=== PATIENT | male | born 1995 | race Hispanic/Latino ===

== ENCOUNTER 2022-05-08 13:19 | Emergency (ER) | payer OTHER, SELFPAY ==
[2022-05-08] VITALS (10 sets, daily range): BP systolic 136–175; BP diastolic 88–113; PULSE 62–93; RESP 15–23; TEMP 36.7; O2SAT 98–100
[2022-05-08 13:50] LABS: Add Manual Diff / Slide Review NO; Basophils Absolute Auto 100 /uL (0-100); Basophils Percent Auto 0.4 % (0-2); Eosinophils Absolute Auto 0 /uL (0-450); Hematocrit 43.5 % (41-53); Hemoglobin 14.5 g/dL (13.5-17.5); Lymphocytes Absolute Auto 1500 /uL (1100-4500); Lymphocytes Percent Auto 12.8 % (25-40); Mean Corpuscular HGB Conc 33.4 % (30-36); Mean Corpuscular Hemoglobin 26.2 PG (26-34); Mean Corpuscular Volume 78.6 fL (80-100); Monocytes Absolute Auto 1300 /uL (0-900); Neutrophils Absolute Auto 9000 /uL (1500-7000); Neutrophils Percent Auto 75.8 % (50-75); Platelet Count 442 X10^3/uL (150-400); Red Blood Cell Count 5.54 X10^6/uL (4.5-5.9); Red Cell Distribution Width 14.3 % (11.6-14.8); White Blood Cell Count 11.9 X10^3/uL (4.5-11.0)
[2022-05-08 14:02] LABS: Alanine Aminotransferase 32 IU/L (<50); Albumin 5.2 g/dL (3.5-5.0); Albumin Globulin Ratio 1.3 (1.0-2.8); Alkaline Phosphatase 54 U/L (38-126); Aspartate Aminotransferase 32 IU/L (17-59); BUN Creatinine Ratio 8.1 (6-22); Bilirubin Total 1.6 mg/dL (0.2-1.3); Blood Urea Nitrogen 10 mg/dL (9-20); Calcium 10.1 mg/dL (8.4-10.2); Carbon Dioxide 24 mmol/L (22-32); Chloride 97 mmol/L (98-107); Estimated Glomerular Filt Rate > 60 mL/min (>60); Glucose 97 mg/dL (70-100); HEMOLYSIS < 15 (0-50); Lipase 44 U/L (23-300); Potassium 3.5 mmol/L (3.4-5.1); Sodium 139 mmol/L (137-145); Total Protein 9.2 g/dL (6.3-8.2)
[2022-05-08] MEDS: diphenhydrAMINE 50 MG/ML VIAL IV (15:57)
[2022-05-08] MEDS: HALOPERIDOL 5 MG/ML VIAL IV (15:58)
--- NOTE | 2022-05-08 16:06 | PC.NURSE ---
1530: Pt reporting sharp chest pain in left chest that came on suddenly. /10 for pain. Repeat EKG done. Provider made aware. 1555: Pt reports chest pain is going away. /10 for pain.
--- NOTE | 2022-05-08 16:51 | ED.NAVMDI ---
HPI - Nausea/Vomiting/Diarrhea <Christina Vance PA-C - Last Filed: 05/08/22 17:36> General Chief complaint: Nausea/Vomiting/Diarrhea Stated complaint: NVD X 6 days Time Seen by Provider: 05/08/22 14:25 Source: patient Mode of arrival: Ambulatory History of Present Illness HPI Narrative: 26-year-old male with past medical history anxiety, depression, Crohn's presents to the ED with 5 days of intractable vomiting. Patient states he is unable to keep any solids or liquids down. Patient endorses marijuana use. Patient denies fever, chills, chest pain, shortness of breath, diarrhea, lightheadedness, dizziness, syncope. Patient states that his symptoms improve with hot showers. Patient complains of some abdominal pain which he describes as muscular as opposed to internal. Patient denies dysuria, flank pain. Patient denies eating any suspicious foods that might have caused him to vomit. Patient's last bowel movement was 3 or 4 days ago. Patient has a history of Crohn's, has had a partial bowel resection for it. Patient states that he visited the [facility] emergency department last night, had a CT scan without any acute findings, was sent home with a prescription for Zofran. Patient presented to the ED today since his emesis had not stopped. Obtained CT scan results from [facility]. no acute findings. Related Data Allergies Allergy/AdvReac Type Severity Reaction Status Date / Time No Known Drug Allergies Allergy Verified 05/10/22 09:54 Review of Systems <Christina Vance PA-C - Last Filed: 05/08/22 17:36> Review of Systems ROS Unobtainable: All systems reviewed & are unremarkable except as noted in HPI and below Constitutional Constitutional: Denies chills, Denies fatigue, Denies fever(s), Denies frequent falls, Denies lethargy and Denies weakness Eyes Eyes: Denies change in vision, Denies eye discharge, Denies irritation and Denies loss of vision ENT Ears, Nose, Mouth, and Throat: Denies change in voice, Denies dizziness, Denies neck pain, Denies sore throat and Denies throat swelling Cardiovascular Cardiovascular: Denies chest pain, Denies irregular heart rhythm, Denies lightheadedness, Denies palpitations, Denies dyspnea, Denies dyspnea on exertion and Denies orthopnea Respiratory Respiratory: Denies cough, Denies dyspnea, Denies dyspnea on exertion and Denies wheezing Gastrointestinal Gastrointestinal: Denies abdominal pain, Denies change in bowel habits, Denies diarrhea, Reports nausea and Reports vomiting Genitourinary Genitourinary: Denies hematuria, Denies flank pain, Denies urinary incontinence and Denies urinary urgency Musculoskeletal Musculoskeletal: Denies back pain, Denies muscle weakness, Denies neck pain, Denies numbness and Denies tingling Comments: Cramps in bilateral hands Integumentary/Breasts Skin/Breast: Denies pruritus, Denies erythema, Denies rash and Denies wounds Neurologic Neurologic: Denies behavioral changes, Denies confusion, Denies dizziness, Denies frequent falls, Denies loss of vision, Denies numbness, Denies tingling and Denies weakness Psychiatric Psychiatric: Denies anxiety, Denies behavioral changes, Denies confusion, Denies depression, Denies homicidal ideation and Denies suicidal ideation Endocrine Endocrine: Denies fatigue, Denies flushing and Denies palpitations Hematologic/Lymphatic Hematologic/Lymphatic: Denies easy bruising Allergic/Immunologic Allergic/Immunologic: Denies urticaria, Denies throat swelling and Denies wheezing Patient History <Christina Vance PA-C - Last Filed: 05/08/22 17:36> Social History Smoking Status: Current every day smoker Smoking Status: Current every day smoker alcohol intake frequency: 0-2 drinks per day Exam <Christina Vance PA-C - Last Filed: 05/08/22 17:36> Narrative Exam Narrative: Const General:?cooperative, healthy appearing and comfortable [facility] Head:?normal to inspection Ears:?hearing grossly normal bilaterally Nose:?external nose normal Face and sinus:?normal facial exam and sinuses nontender Mouth:?oral mucosae normal Throat:?posterior oropharynx normal Eyes General:?appearance normal, both eyes and all related structures Neck Neck:?normal visual inspection and no lymphadenopathy noted Resp Effort & Inspection:?normal respiratory effort Auscultation:?clear to auscultation bilaterally Cardio Rate:?regular rate Rhythm:?regular rhythm GI Abdomen is soft, nondistended, nontender to palpation. No CVA tenderness. Neuro General:?patient alert, patient awake and patient oriented x3 Initial Vital Signs Initial Vital Signs: Vital Signs Temperature 98.0 F 05/08/22 13:27 Pulse Rate 93 H 05/08/22 13:27 Respiratory Rate 22 05/08/22 13:27 Blood Pressure 136/99 H 05/08/22 13:27 Pulse Oximetry 100 05/08/22 13:27 Oxygen Delivery Method 05/08/22 13:27 <Michael Crowder DO - Last Filed: 05/11/22 07:13> Initial Vital Signs Initial Vital Signs: Vital Signs Temperature 98.0 F 05/08/22 13:27 Pulse Rate 93 H 05/08/22 13:27 Respiratory Rate 22 05/08/22 13:27 Blood Pressure 136/99 H 05/08/22 13:27 Pulse Oximetry 100 05/08/22 13:27 Oxygen Delivery Method 05/08/22 13:27 Course <Christina Vance PA-C - Last Filed: 05/08/22 17:36> Orders Ordered: Discontinued Medications Diphenhydramine HCl (Diphenhydramine 50 Mg/Ml Vial) 50 mg IV NOW ONE Stop: 05/08/22 15:20 Last Admin: 05/08/22 15:57 Dose: 50 mg Documented By: DOUG Haloperidol (Haloperidol 5 Mg/Ml Vial) 5 mg IV NOW ONE Stop: 05/08/22 15:20 Last Admin: 05/08/22 15:58 Dose: 5 mg Documented By: DOUG Ondansetron HCl (Ondansetron 4 Mg/2 Ml Inj) 4 mg IV NOW ONE Stop: 05/08/22 17:21 Last Admin: 05/08/22 17:26 Dose: 4 mg Documented By: LINDY Vital Signs Vital signs: Vital Signs - 8 hr 05/08/22 13:27 05/08/22 15:30 05/08/22 15:31 Temperature 98.0 F Pulse Rate 93 H 88 88 Respiratory Rate 22 18 17 Blood Pressure 136/99 H Pulse Oximetry 100 100 100 Oxygen Delivery Method Room Air 05/08/22 15:31 05/08/22 16:00 05/08/22 16:00 Temperature Pulse Rate 78 Respiratory Rate 15 Blood Pressure 175/108 H 163/98 H Pulse Oximetry 100 Oxygen Delivery Method <Michael Crowder DO - Last Filed: 05/11/22 07:13> Orders Ordered: Discontinued Medications Diphenhydramine HCl (Diphenhydramine 50 Mg/Ml Vial) 50 mg IV NOW ONE Stop: 05/08/22 15:20 Last Admin: 05/08/22 15:57 Dose: 50 mg Documented By: DOUG Haloperidol (Haloperidol 5 Mg/Ml Vial) 5 mg IV NOW ONE Stop: 05/08/22 15:20 Last Admin: 05/08/22 15:58 Dose: 5 mg Documented By: DOUG Ondansetron HCl (Ondansetron 4 Mg/2 Ml Inj) 4 mg IV NOW ONE Stop: 05/08/22 17:21 Last Admin: 05/08/22 17:26 Dose: 4 mg Documented By: LINDY Vital Signs Vital signs: Vital Signs - 8 hr 05/08/22 13:27 05/08/22 15:30 05/08/22 15:31 Temperature 98.0 F Pulse Rate 93 H 88 88 Respiratory Rate 22 18 17 Blood Pressure 136/99 H Pulse Oximetry 100 100 100 Oxygen Delivery Method Room Air 05/08/22 15:31 05/08/22 16:00 05/08/22 16:00 Temperature Pulse Rate 78 Respiratory Rate 15 Blood Pressure 175/108 H 163/98 H Pulse Oximetry 100 Oxygen Delivery Method MDM - Nausea/Vomiting/Diarrhea <Christina Vance PA-C - Last Filed: 05/08/22 17:36> Lab Data Result diagrams: 05/08/22 13:36 05/08/22 13:36 Labs: Lab Results 05/08/22 05/08/22 Range/Units 13:36 13:36 WBC 11.9 H (4.5-11.0) X10^3/uL RBC 5.54 (4.5-5.9) X10^6/uL Hgb 14.5 (13.5-17.5) g/dL Hct 43.5 (41-53) % MCV 78.6 L (80-100) fL MCH 26.2 (26-34) PG MCHC 33.4 (30-36) % RDW 14.3 (11.6-14.8) % Plt Count 442 H (150-400) X10^3/uL Neut % (Auto) 75.8 H (50-75) % Lymph % (Auto) 12.8 L (25-40) % [place] % (Auto) 11.0 (3-14) % Eos % (Auto) 0.0 L (2-4) % Baso % (Auto) 0.4 (0-2) % Neut # (Auto) 9000 H (0734-2008) /uL Lymph # (Auto) 1500 (1840-7387) /uL [place] # (Auto) 1300 H (0-900) /uL Eos # (Auto) 0 (0-450) /uL Baso # (Auto) 100 (0-100) /uL Sodium 139 (137-145) mmol/L Potassium 3.5 (3.4-5.1) mmol/L Chloride 97 L (98-107) mmol/L Carbon Dioxide 24 (22-32) mmol/L BUN 10 (9-20) mg/dL Creatinine 1.24 (0.66-1.25) mg/dL Estimated GFR > 60 (>60) mL/min BUN/Creatinine Ratio 8.1 (6-22) Glucose 97 (70-100) mg/dL Calcium 10.1 (8.4-10.2) mg/dL Total Bilirubin 1.6 H (0.2-1.3) mg/dL AST 32 (17-59) IU/L ALT 32 (<50) IU/L Alkaline Phosphatase 54 (38-126) U/L Total Protein 9.2 H (6.3-8.2) g/dL Albumin 5.2 H (3.5-5.0) g/dL Globulin 4.0 (1.7-4.1) g/dL Albumin/Globulin Ratio 1.3 (1.0-2.8) Lipase 44 (23-300) U/L Urine Dip Bedside Urine Glucose Negative Bedside Urine Bilirubin - Negative Bedside Urine Ketone ++ 40 Urine Specific [place] 1.010 Bedside Urine Occult Blood - Negative Bedside Urine pH 8.0 Bedside Urine Protein + 30 Bedside Urine Urobilinogen +/- 1mg Bedside Urine Nitrite - Negative Bedside Urine Leukocytes - Negative Esterase MDM Narrative Medical decision making narrative: 26-year-old male with past medical history anxiety, depression, Crohn's presents to the ED with 5 days of intractable vomiting. Concern for cannabinoid hyperemesis syndrome. Patient's symptoms improved with Haldol, Benadryl. Patient given some IV fluids. Labs were within normal limits. Will discharge patient home with ED return precautions, recommendation to continue Zofran, refrain from marijuana. <Michael Crowder, DO - Last Filed: 05/11/22 07:13> Lab Data Labs: Lab Results 05/08/22 05/08/22 Range/Units 13:36 13:36 WBC 11.9 H (4.5-11.0) X10^3/uL RBC 5.54 (4.5-5.9) X10^6/uL Hgb 14.5 (13.5-17.5) g/dL Hct 43.5 (41-53) % MCV 78.6 L (80-100) fL MCH 26.2 (26-34) PG MCHC 33.4 (30-36) % RDW 14.3 (11.6-14.8) % Plt Count 442 H (150-400) X10^3/uL Neut % (Auto) 75.8 H (50-75) % Lymph % (Auto) 12.8 L (25-40) % [place] % (Auto) 11.0 (3-14) % Eos % (Auto) 0.0 L (2-4) % Baso % (Auto) 0.4 (0-2) % Neut # (Auto) 9000 H (1949-9098) /uL Lymph # (Auto) 1500 (5994-3875) /uL [place] # (Auto) 1300 H (0-900) /uL Eos # (Auto) 0 (0-450) /uL Baso # (Auto) 100 (0-100) /uL Sodium 139 (137-145) mmol/L Potassium 3.5 (3.4-5.1) mmol/L Chloride 97 L (98-107) mmol/L Carbon Dioxide 24 (22-32) mmol/L BUN 10 (9-20) mg/dL Creatinine 1.24 (0.66-1.25) mg/dL Estimated GFR > 60 (>60) mL/min BUN/Creatinine Ratio 8.1 (6-22) Glucose 97 (70-100) mg/dL Calcium 10.1 (8.4-10.2) mg/dL Total Bilirubin 1.6 H (0.2-1.3) mg/dL AST 32 (17-59) IU/L ALT 32 (<50) IU/L Alkaline Phosphatase 54 (38-126) U/L Total Protein 9.2 H (6.3-8.2) g/dL Albumin 5.2 H (3.5-5.0) g/dL Globulin 4.0 (1.7-4.1) g/dL Albumin/Globulin Ratio 1.3 (1.0-2.8) Lipase 44 (23-300) U/L Urine Dip Bedside Urine Glucose Negative Bedside Urine Bilirubin - Negative Bedside Urine Ketone ++ 40 Urine Specific [place] 1.010 Bedside Urine Occult Blood - Negative Bedside Urine pH 8.0 Bedside Urine Protein + 30 Bedside Urine Urobilinogen +/- 1mg Bedside Urine Nitrite - Negative Bedside Urine Leukocytes - Negative Esterase Discharge Plan Departure Patient Disposition: Home Clinical Impression: Hyperemesis Instructions: DI for Vomiting -- Adult Activity Restrictions/Additional Instructions: You were evaluated in the ED today for vomiting. Your symptoms are likely due to marijuana use. Your symptoms resolved with Haldol and Benadryl. You may continue to take Zofran every 8 hours until your symptoms resolve. Please continue to hydrate well, drink lots of water. Please avoid marijuana use, since this can cause you to start vomiting again. Please follow-up with your PCP as soon as possible so you can get back on your anxiety medications. Return to the ED if your symptoms worsen, you are unable to stop vomiting and keep any solids or fluids down. Visit Report Forms: Patient Portal/API <Michael Crowder DO - Last Filed: 05/11/22 07:13> Cosign ED Attending Joanieature Attestation: I was immediately available in the department for consultation. This documentation has been reviewed and I agree with assessment and plan. Supervised by Michael Crowder DO
--- NOTE | 2022-05-08 17:21 | PC.NURSE ---
Pt states he is getting more nauseous. Provider aware.
[2022-05-08] MEDS: ONDANSETRON 4 MG/2 ML INJ IV (17:26)
--- NOTE | 2022-05-08 17:32 | PC.NURSE ---
Provider aware of vitals.
== END 2022-05-08 17:59 | disposition home or self-care (01) ==
PROVIDERS: Emergency Medicine; Emergency Provider Student in an Organized Health Care Education/Training Program
DX: R11.10 Vomiting, unspecified (principal); R07.9 Chest pain, unspecified
CPT/HCPCS: 36415; 80053; 81003; 83690; 85025; 93005; 96374; 96375; 99284; J1200; J1630; J2405

== ENCOUNTER 2022-05-10 09:02 | Emergency (ER) | payer OTHER, SELFPAY ==
[2022-05-10 09:50] VITALS: BP 143/92; PULSE 88; RESP 17; TEMP 36.3; O2SAT 99; BMI 29.5
--- NOTE | 2022-05-10 12:46 | PC.NURSE ---
I informed pt that he was next to come into a room,he stated are you sure about that? in a snarky manner. I said yes I'm sure unless you don't want to. He then said if I'm not I'll just go to another ER. 2 minutes after this conversation he left .
--- NOTE | 2022-05-10 16:54 | ED.DIZZY ---
HPI - Dizziness General Chief Complaint: Dizziness Stated Complaint: Extreme nausea,dizziness,not eating Time Seen by Provider: 05/10/22 12:13 Source: patient Mode of arrival: Ambulatory Related Data Allergies Allergy/AdvReac Type Severity Reaction Status Date / Time No Known Drug Allergies Allergy Verified 05/10/22 09:54 Patient History Social History Smoking Status: Current every day smoker Smoking Status: Current every day smoker alcohol intake frequency: holidays/special occasions only Substance Use Type: marijuana Exam Initial Vital Signs Initial Vital Signs: Vital Signs Temperature 97.4 F L 05/10/22 09:50 Pulse Rate 88 05/10/22 09:50 Respiratory Rate 17 05/10/22 09:50 Blood Pressure 143/92 H 05/10/22 09:50 Pulse Oximetry 99 05/10/22 09:50 Oxygen Delivery Method 05/10/22 09:50 Course Orders Ordered: ED Orders 05/10/22 12:17 Magnesium Stat Discontinued Medications Sodium Chloride (Normal Saline 0.9%) 1,000 mls @ 1,000 mls/hr IV BOLUS ONE Stop: 05/10/22 13:13 Ketorolac Tromethamine (Ketorolac 30 Mg/Ml Vial) 15 mg IV NOW ONE Stop: 05/10/22 12:15 Ondansetron HCl (Ondansetron 4 Mg/2 Ml Inj) 4 mg IV NOW ONE Stop: 05/10/22 12:15 Pantoprazole Sodium (Pantoprazole 40 Mg Vial) 40 mg IV NOW ONE Stop: 05/10/22 12:15 Vital Signs Vital signs: Vital Signs - 8 hr 05/10/22 09:50 Temperature 97.4 F L Pulse Rate 88 Respiratory Rate 17 Blood Pressure 143/92 H Pulse Oximetry 99 Oxygen Delivery Method Room Air Discharge Plan Departure Patient Disposition: Left Without Being Seen Clinical Impression: Patient left without being seen
== END 2022-05-10 12:46 | disposition left against medical advice (07) ==
PROVIDERS: Emergency Provider Emergency Medicine
CPT/HCPCS: 99281